=== PATIENT | female | born 1960 | race American Indian/Alaskan Native ===

== ENCOUNTER 2022-06-08 20:57 | Emergency (ER) | payer OTHER ==
[~2022-06-08] VITALS: Ht 157.5 cm; Wt 75.7 kg
[2022-06-08] MEDS ORDERED: COZAAR25 MG (21:15)
[2022-06-08] MEDS ORDERED: SYNTHROID50 MCG (21:15)
[2022-06-08] MEDS ORDERED: LOSARTAN (21:17)
[2022-06-09] MEDS ORDERED: MECLIZINE HCL25 MG PO (01:50)
== END 2022-06-09 02:02 | disposition home or self-care (01) ==
LOC: ER 20:57
DX: R42 Dizziness and giddiness (principal); E16.2 Hypoglycemia, unspecified; I10 Essential (primary) hypertension

== ENCOUNTER 2023-04-04 21:29 | Emergency (ER) | payer OTHER ==
[~2023-04-04] VITALS: Ht 157.5 cm; Wt 74.8 kg
[~2023-04-04 21:29] MED LIST: COZAAR25 MG; LOSARTAN; MECLIZINE HCL25 MG PO; SYNTHROID50 MCG
== END 2023-04-04 23:42 | disposition home or self-care (01) ==
LOC: ER 21:29
DX: S80.01XA Contusion of right knee, initial encounter (principal); W18.31XA Fall on same level due to stepping on an object, initial encounter; Y93.89 Activity, other specified; Y92.89 Other specified places as the place of occurrence of the external cause; Y99.9 Unspecified external cause status; I10 Essential (primary) hypertension; Z88.0 Allergy status to penicillin

== ENCOUNTER 2023-10-31 10:42 | Emergency (ER) | payer OTHER ==
[~2023-10-31] VITALS: Ht 160 cm; Wt 77.1 kg
== END 2023-10-31 12:45 | disposition home or self-care (01) ==
LOC: ER 10:43
DX: N39.0 Urinary tract infection, site not specified (principal); E03.9 Hypothyroidism, unspecified; I10 Essential (primary) hypertension; Z88.0 Allergy status to penicillin